=== PATIENT | female | born 1995 | race Caucasian/White ===

== ENCOUNTER 2022-02-17 15:13 | Emergency (ER) | payer OTHER ==
[~2022-02-17 15:13] MED LIST: ZOFRAN ODT4 MG PO
[2022-02-17 16:11] LABS: BASOPHIL 0.8 % (0-2); EOSINOPHIL 1.7 % (0-5); HCT 41.5 % (37.0-47.0); HGB 14.1 g/dl (12.5-16.0); LYMPHOCYTE 18.1 % (15-48); MCH 32.1 pg (25.0-31.0); MCV 94.5 fL (78.0-100.0); MONOCYTE 7.8 % (0-12); MPV 10.1 fL (6.0-9.5); NEUTROPHIL 71.3 % (41-80); NRBC 0; PLT 244 K/uL (150-400); RBC 4.39 M/uL (4.20-5.40); RDW 11.9 % (11.5-14.0); WBC 10.6 K/uL (4.0-10.5)
[2022-02-17 16:57] LABS: ALBUMIN 3.7 g/dL (3.4-5.0); BILIRUBIN - TOTAL 0.4 mg/dL (0.2-1.0); BUN/CREAT RATIO (CALC) 18.8 RATIO; CREATININE 0.8 mg/dL (0.51-0.95); GLOBULIN (CALCULATION) 2.7 g/dL; POTASSIUM 4.3 mmol/L (3.5-5.1); TOTAL PROTEIN 6.4 g/dL (6.4-8.2)
[2022-02-17 18:03] LABS: BILIRUBIN NEGATIVE (NEGATIVE); BLOOD NEGATIVE Ery/uL (NEGATIVE); CLARITY CLEAR (CLEAR); COLOR YELLOW (YELLOW); GLUCOSE (U) NORMAL (NORMAL); LEUKOCYTES NEGATIVE Leu/uL (NEGATIVE); NITRITE NEGATIVE (NEGATIVE); PROTEIN NEGATIVE (NEGATIVE); SPECIFIC GRAVITY 1.015 (1.001-1.030)
== END 2022-02-17 19:07 | disposition home or self-care (01) ==
LOC: FER 15:13
PROVIDERS: Emergency Medicine; Nurse Practitioner Family
DX: R55 Syncope and collapse (principal); R42 Dizziness and giddiness; F17.290 Nicotine dependence, other tobacco product, uncomplicated; Z88.0 Allergy status to penicillin
CPT/HCPCS: 36415; 71045; 80053; 81003; 84484; 85025; 93005; J7030